=== PATIENT | male | born 1965 | race Two or more races ===

== ENCOUNTER 2016-08-17 16:18 | Emergency (ER) | payer BC ==
[~2016-08-17 16:18] MED LIST: ADVAIR250 INH; ALTACE10 MG PO; AMARYL2 PO; ASAB PO; BETAPACE80 PO; C5 PO; CENTRUM TAB1 TAB PO; CO Q-10200 MG PO; COQ-10200 MG PO; COQ10100 MG OR; COREG3 PO; CRANBERRY500 MG OR; CRANBERRY500 MG PO; DSS PO; FLONASE NAS; GLUCOPHAGE1000 MG PO; GLUCPH PO; JANTOVEN1 MG PO; K500 PO; L20 PO; L40 PO; LANTUS SC; LEVEMIR SC; LIPITOR10 PO; LIPITOR80 MG PO; NAP250 PO; NITROSTAT0.4 MG SL; NOVOLOG SC; NYSTOP100000 MG TOP; PATADAY OPH; PATANASE0.6 % NAS; PEP20 PO; PLAVIX PO; PRILOSEC10 M1 PO; PRIN2.5 PO; PRIN5 PO; PROAIR HFA INH; PROAIR HFA PO; RAN500 PO; SINGULAIR1 PO; SINUS RINSE; SPIRIVA INH; SPIRO50 PO; SYSTANE OPH; TOPXL50 PO; VITE PO; XODOL1 TA2 PO; ZYRTEC ALLGY10 MG PO
== END 2016-08-17 16:56 | disposition home or self-care (01) ==
LOC: ER 16:18
DX: R22.1 Localized swelling, mass and lump, neck (principal); T78.1XXA Other adverse food reactions, not elsewhere classified, initial encounter; J45.909 Unspecified asthma, uncomplicated; J44.9 Chronic obstructive pulmonary disease, unspecified; I25.2 Old myocardial infarction; I10 Essential (primary) hypertension; Z95.5 Presence of coronary angioplasty implant and graft; K21.9 Gastro-esophageal reflux disease without esophagitis; E11.9 Type 2 diabetes mellitus without complications; I25.10 Atherosclerotic heart disease of native coronary artery without angina pectoris; Z86.73 Personal history of transient ischemic attack (TIA), and cerebral infarction without residual deficits; Z88.8 Allergy status to other drugs, medicaments and biological substances; Z79.899 Other long term (current) drug therapy; Z79.84 Long term (current) use of oral hypoglycemic drugs; Z79.4 Long term (current) use of insulin
CPT/HCPCS: 96374; 99285; A9270-GY; J1200; J2930